=== PATIENT | female | born 1945 | race Two or more races ===

== ENCOUNTER 2017-03-01 12:57 | Emergency (ER) | payer MEDICARE, OTHER ==
[~2017-03-01] VITALS: Ht 165.1 cm; Wt 65.8 kg
--- NOTE | 2017-03-01 13:22 | Emergency Room Report ---
History of Present Illness General Chief Complaint: Upper Extremity Injury Source: Patient Present Illness [facility] The patient is a 71-year-old female presenting for injury of the left hand. The patient states that she was picking up an object and felt a pop of the left middle finger. She noticed pain at the time but denies any pain today. She denies previous injury of the finger. She denies numbness or tingling. she denies any radiating pain. Allergies: Coded Allergies: TETANUS TOXOID,ADSORBED (Verified Allergy, Unknown, 10/21/09) Patient History Past Medical History: see triage record Pertinent Family History: none Reviewed Nursing Documentation: PMH: Agreed, PSxH: Agreed Nursing Documentation-PMH Past Medical History: No History, Except For Hx Hypertension: Yes History Of Psychiatric Problem: Yes - anxiety Review of Systems All Other Systems: negative except mentioned in HPI Physical Exam Vital Signs Date Time Temp Pulse Resp B/P Pulse Ox O2 Delivery O2 Flow Rate FiO2 03/01/17 13:06 99.3 54 16 162/81 98 Room Air Sp02 EP Interpretation: reviewed, normal General Appearance: no apparent distress, alert, GCS 15, non-toxic Head: normocephalic, atraumatic Eyes: bilateral eye PERRL, bilateral eye normal inspection Musculoskeletal: non-tender, decreased range of motion - Unable to extend the L DIP Neurologic: alert, oriented x3, responsive, motor strength/tone normal, sensory intact, normal gait, speech normal Psychiatric: judgement/insight normal, memory normal, mood/affect normal, no suicidal/homicidal ideation Skin: normal color, no rash, warm/dry, well hydrated Lymphatic: no adenopathy Procedures Splinting Splinting : Consent: Verbal Location: L 3rd digit splint Pre-Made Type: metal Pre-Proc Neuro Vasc Exam: normal Post-Proc Neuro Vasc Exam: normal Patient Tolerated: Well Complications: None Medical Decision Making PA Attestation Dr. Lacey is my supervising physician. Patient management was discussed with my supervising physician Diagnostic Impression: Primary Impression: Extensor tendon disruption ER Course The patient is a 71-year-old female presenting for injury of the left hand. Ddx considered include but not limited to sprain/strain, fracture, contusion PE: NAD L hand: 3rd digit has drooping of the DIP. Unable to extend at the DIP. Full flexion intact. SILT. Non tender. X-ray shows no acute findings A finger splint is applied She'll be discharged and is to follow up with PMD and hand surgeon for evaluation. ER precautions given Other X-Ray Diagnostic Results # of Views/Limited Vs Complete: 3 View Interpretation: no fractures, no dislocation, no soft tissue swelling Indication: Pain Impression: No acute disease Date Electronically Signed: Mar 01, 2017 Time Electronically Signed: 15:51 PA Scribe Text I am acting as scribe for my supervising physician. My supervising physician's interpretation of the Dr. Lacey xrays are there are no fractures, dislocations or soft tissue swelling. Last Vital Signs Date Time Temp Pulse Resp B/P Pulse Ox O2 Delivery O2 Flow Rate FiO2 03/01/17 13:06 99.3 54 16 162/81 98 Room Air Status: improved Disposition: HOME, SELF-CARE Condition: Stable MARC TOURE Mar 01, 2017 13:22
[2017-03-01 13:37] VITALS: BP 162/81
[2017-03-01 14:09] VITALS: BP 155/78
--- NOTE | 2017-03-01 14:21 | Diagnostic Imaging Report ---
Indications: Left hand pain and swelling--attention third digit Technique: 3 views left hand. Findings: Comparison: None No fracture, dislocation, joint space widening, lytic destruction, periosteal reaction , surrounding soft tissue swelling/foreign body/gas, or other acute changes are identified. Multiple interphalangeal joints narrowed with marginal osteophyte formation, including the third DIP joint. IMPRESSION: No evidence of acute abnormality Osteoarthritis.
== END 2017-03-01 14:12 | disposition home or self-care (01) ==
LOC: EMR 13:26
DX: S66.202A Unspecified injury of extensor muscle, fascia and tendon of left thumb at wrist and hand level, initial encounter (principal); X58.XXXA Exposure to other specified factors, initial encounter; Y93.9 Activity, unspecified; Y92.9 Unspecified place or not applicable; Z88.7 Allergy status to serum and vaccine; I10 Essential (primary) hypertension
CPT/HCPCS: 29130; 99283